=== PATIENT | male | born 1955 | race Caucasian/White ===

== ENCOUNTER 2020-12-17 10:28 | Outpatient (CLI) | payer MEDICARE, BC ==
[2020-12-17 17:29] LABS: SARS-CoV-2 PCR by NAA Not Detected (NotDetected)
== END 2020-12-17 10:29 | disposition home or self-care (01) ==
LOC: CSHLAB 10:28
PROVIDERS: ATTEND Internal Medicine Gastroenterology
DX: Z01.812 Encounter for preprocedural laboratory examination (principal); Z20.822 Contact with and (suspected) exposure to COVID-19; Z12.11 Encounter for screening for malignant neoplasm of colon
CPT/HCPCS: U0003; U0005

== ENCOUNTER 2020-12-22 07:09 | Day surgery (SDC) | payer MEDICARE, BC ==
[2020-12-18 12:24] VITALS: BMI 25.7
[2020-12-22] MEDS ORDERED: Lidocaine 1% MPF 2 ML VIAL ONE (08:14)
[2020-12-22] MEDS ORDERED: PROPOFOL 40 ML ONE (09:31)
[2020-12-22] MEDS ORDERED: Lidocaine 1% PF 5 ML VIAL ONE (09:40)
[2020-12-22] MEDS ORDERED: PROPOFOL 20 ML ONE (09:58)
== END 2020-12-22 10:45 | disposition home or self-care (01) ==
LOC: CSHSDC 07:09
PROVIDERS: ATTEND Internal Medicine Gastroenterology
PROC: 0DBL8ZZ Excision of Transverse Colon, Via Natural or Artificial Opening Endoscopic (ICD-10-PCS; principal; 2020-12-22)
DX: Z12.11 Encounter for screening for malignant neoplasm of colon (principal); K63.5 Polyp of colon; K64.9 Unspecified hemorrhoids; K57.30 Diverticulosis of large intestine without perforation or abscess without bleeding
CPT/HCPCS: 88305; J2704